=== PATIENT | male | born 1985 | race Caucasian/White ===

== ENCOUNTER 2016-09-30 10:55 | Emergency (ER) | payer MEDICAID ==
[~2016-09-30] VITALS: Ht 188 cm; Wt 117.9 kg
[2016-09-30 10:55] VITALS: BP_SYST 139
--- NOTE | 2016-09-30 10:55 | NUR ---
BROUGHT IN BY [facility] AND PLACED IN HALLWAY. TRIAGED AND WILL ASSUME CARE
--- NOTE | 2016-09-30 11:01 | NUR ---
DR ROY AT BEDSIDE FOR EVALUATION
--- NOTE | 2016-09-30 11:05 | NUR ---
PT STATES THAT HE WAS ON HIS FIRST DAY AT WORK AT [employer], HAD TO PUSH A LARGE ITEM UP A LARGE HILL AND BECAME DIZZY. HAD UNSTEADY GAIT AND WAS ASSISTED TO SITTING POSITION BY CO-WORKERS. PT STATES THAT HE DRANK SOME GATORADE AND IS NOW FEELING A LITTLE BETTER. STATES ROOM IS STILL SPINNING A LITTLE, NOT BAD BEFORE.
[2016-09-30] MEDS ORDERED: MECLIZINE HCL 25 MG TABLET (ANITVERT) PO ONE (11:15)
[2016-09-30] MEDS ORDERED: ONDANSETRON 4 MG ODT TAB PO ONE (11:15)
[2016-09-30 11:21] LABS: BASOPHILS # (AUTO) 0.1 K/uL (0.0-0.2); BASOPHILS % (AUTO) 1.1 % (0.0-2.0); EOSINOPHILS # (AUTO) 0.1 K/uL (0.0-0.4); EOSINOPHILS % (AUTO) 0.6 % (0.0-4.0); HEMATOCRIT 49.8 % (36-54); HEMOGLOBIN 16.7 g/dL (14.0-18.0); LYMPHOCYTES # (AUTO) 1.6 K/uL (1.0-5.5); LYMPHOCYTES % (AUTO) 12.3 % (20.5-51.5); MEAN CORPUSCULAR HEMOGLOBIN 31 pg (27-31); MEAN CORPUSCULAR HGB CONC 34 % (32-36); MEAN CORPUSCULAR VOLUME 94 fL (79.0-98.0); MONOCYTES % (AUTO) 7.6 % (1.7-9.3); NEUTROPHILS # (AUTO) 10.6 K/uL (1.8-7.7); NEUTROPHILS % (AUTO) 78.4 % (40.0-70.0); PLATELET COUNT (AUTO) 199 K/uL (130-430); RED BLOOD CELL COUNT(AUTO) 5.32 MIL/uL (4.2-6.2); RED CELL DISTRIBUTION WIDTH 12.5 % (9.0-15.0); WHITE BLOOD COUNT (AUTO) 13.4 K/uL (4.8-10.8)
[2016-09-30 11:27] LABS: CALCIUM 9.5 mg/dL (8.4-11.0); CREATININE 1.39 mg/dL (0.55-1.30); POTASSIUM 3.7 mmol/L (3.5-5.1)
--- NOTE | 2016-09-30 11:42 | NUR ---
DR ROY AT BEDSIDE FOR RE-EVALUATION
[2016-09-30] MEDS ORDERED: NACL 0.9% 1,000 ML IV ONE (12:00)
--- NOTE | 2016-09-30 13:00 | NUR ---
Patient given written and verbal discharge instructions and verbalizes understanding. ER MD discussed with patient the results and treatment provided. Patient in stable condition. ID arm band removed. IV catheter removed intact and dressing applied, no active bleeding. Rx of ZOFRAN,MECLIZINE given. Patient educated on pain management and to follow up with PMD. Pain Scale . Opportunity for questions provided and answered.
[2016-09-30 13:05] VITALS: BP_SYST 132
== END 2016-09-30 13:05 | disposition home or self-care (01) ==
LOC: SED 10:55
DX: H81.10 Benign paroxysmal vertigo, unspecified ear (principal); R03.0 Elevated blood-pressure reading, without diagnosis of hypertension
CPT/HCPCS: 36415; 80048; 85025; 96360; 99284; J7030; J8597; Q0162